=== PATIENT | female | born 2000 | race Two or more races ===

== ENCOUNTER 2023-09-29 20:42 | Emergency (ER) | payer OTHER ==
[~2023-09-29] VITALS: Ht 162.6 cm; Wt 95.3 kg
[2023-09-29 23:34] LABS: URINE APPEARANCE Cloudy; URINE BILIRRUBIN Negative (NEGATIVE); URINE BLOOD Negative; URINE COLOR Yellow; URINE GLUCOSE Negative (NEGATIVE); URINE LEUKOCYTE Trace; URINE NITRATE Negative; URINE PROTEIN Negative (NEGATIVE)
[2023-09-29 23:38] LABS: URINE BACTERIA 2720.1 uL (0.0-1933); URINE EPITHELIAL CELLS 59.8 uL (0.0-38.8); URINE RBC 9.3 uL (0.0-20.8); URINE WBC 125.5 uL (0.0-23.2)
[2023-09-29 23:44] LABS: HEMATOCRIT 34.2 % (36.0-45.00); HEMOGLOBIN 10.9 g/dL (12.0-15.00); MEAN CORPUSCULAR HEMOGLOBIN 21.5 pg (27.00-32.0); MEAN CORPUSCULAR HGB CONC 31.9 g/dl (32.0-36.0); PLATELET COUNT 299 K/uL (150-450); RED BLOOD COUNT 5.06 M/uL (4.00-6.00)
[2023-09-29 23:50] LABS: MEAN CELL VOLUME 67.5 fL (80.00-100.00); RED CELL DISTRIBUTION WIDTH 20.2 % (11.5-14.5)
[2023-09-30] LABS: CALCIUM 8.7 mg/dL (8.5-10.1); CREATININE SERUM 0.93 mg/dL (0.55-1.02); GFR 75.39; POTASSIUM 3.89 mEq/L (3.5-5.1)
[2023-09-30] MEDS ORDERED: DICLOFENAC POTA50 MG PO (01:19)
[2023-09-30] MEDS ORDERED: NORFLEX100MG PO (01:19)
== END 2023-09-30 01:39 | disposition home or self-care (01) ==
LOC: ER 20:42
PROVIDERS: Nurse Practitioner Family
DX: R07.89 Other chest pain (principal); M94.0 Chondrocostal junction syndrome [Tietze]